=== PATIENT | male | born 1960 | race Caucasian/White ===

== ENCOUNTER → 2017-01-03 | Outpatient (CLI) | payer OTHER | LOC: ULTRA 12:48 | DX: N50.819 Testicular pain, unspecified (principal) ==

== ENCOUNTER → 2019-01-07 | Outpatient (CLI) | payer OTHER ==
[~2019-01-07] MED LIST: ADULT ASPIRIN R81 MG PO; ALL DAY ALLERGY10 M3 PO; CO Q-10100 MG PO; HOLY BASIL PO; LIPITOR 20 MG T20 M1 PO; SERTRALINE HCL100 MG PO
== END ==
LOC: CAT 01-06 13:51
DX: R91.1 Solitary pulmonary nodule (principal); R59.0 Localized enlarged lymph nodes

== ENCOUNTER → 2019-01-28 | Outpatient (CLI) | payer OTHER | LOC: PET 09:17 | DX: R91.1 Solitary pulmonary nodule (principal); R59.0 Localized enlarged lymph nodes; R91.8 Other nonspecific abnormal finding of lung field ==

== ENCOUNTER 2019-02-10 06:00 | Day surgery (SDC) | payer OTHER ==
[2019-02-05 08:52] LABS: URINE BILIRUBIN NEGATIVE (Negative); URINE BLOOD NEGATIVE (Negative); URINE CLARITY CLEAR; URINE COLOR YELLOW; URINE GLUCOSE-RANDOM* NEGATIVE (Negative); URINE KETONES NEGATIVE (Negative); URINE LEUKOCYTES-REFLEX NEGATIVE (Negative); URINE NITRITE-REFLEX NEGATIVE (Negative); URINE PROTEIN (DIPSTICK) NEGATIVE (Negative); URINE SPECIFIC GRAVITY 1.025 (1.005-1.035); URINE UROBILINOGEN 0.2 E.U./dl (0.2-1.0)
[2019-02-05 09:03] LABS: APTT 25.3 Seconds (24.5-32.8)
[~2019-02-10] VITALS: Ht 182.9 cm; Wt 91.6 kg
[2019-02-10 07:50] VITALS: BP 126/88
[2019-02-10 12:12] VITALS: BP 126/88
--- NOTE | 2019-02-11 15:09 | O ---
[facility] [place] [address] OPERATIVE REPORT Name: RAJANI GOODRICH Room #: 150-1 [facility]..#: [id number] Admission: 02/10/19 Attend Phys: Ciaran Luna MD Discharge: Date of : 62 Report #: [id number] THIS REPORT FOR: //name// CC: Ciaran Grady DATE OF SERVICE: 02/10/2019 PREOPERATIVE DIAGNOSIS: Mediastinal and hilar adenopathy. POSTOPERATIVE DIAGNOSIS: Mediastinal and hilar adenopathy. OPERATION: Bronchoscopy and mediastinoscopy. SURGEON: Ciaran Luna MD REPORTING PROCESS CONSULTANT: MATI Thrasher. ANESTHESIA: General. INDICATIONS: The patient is a 58-year-old with hilar and mediastinal adenopathy. The patient was sent to us for tissue diagnosis. FINDINGS AND TECHNIQUE: After general anesthesia was established, flexible diagnostic bronchoscopy was performed. No endobronchial lesions were noted and a respiratory mucosa was smooth and pink with no evidence of chronic inflammation. The patient was positioned, prepped and draped for mediastinoscopy. A low collar incision was made. Pretracheal space was entered and the mediastinoscope was passed. Enlarged lymph nodes at level 4 were identified, station 4R nodes were biopsied and sent for pathologic consideration. Frozen section showed noncaseating granulomas consistent with sarcoidosis and sufficient tissue was sent for culture as well as a full pathologic workup. Hemostasis was ascertained and the wound was closed in layers. The patient was taken to the recovery area in good condition having tolerated the procedure well. All counts were reported as correct. <ELECTRONICALLY SIGNED> By: Ciaran Luna MD 02/11/19 [id number] [id number] Ciaran Luna MD /nt
--- NOTE | 2019-02-12 16:06 | PATH ---
[facility] [place] [address] [place] [address] PATHOLOGY RPT PROCEDURE Name: RAJANI GOODRICH Room #: DEP [facility]..#: [id number] Admission: 02/10/19 Date of : 62 Discharge: 02/10/19 Report #: [id number] Path Case #: [id number] [facility] Accession Number: [id number] . 01 Material submitted: . lymph node - 4R MEDIASTINAL LYMPH NODE. Modifiers: 4R . 02 Frozen section diagnosis: . FROZEN SECTION DIAGNOSIS: (Dr. Yohana Otero) . FSA1: Four R mediastinal lymph nodes, lymph node biopsy: - Non-necrotizing granulomatous inflammation. - These findings are discussed with Dr. Ciaran Luna in OR 7 at [facility] and a written report is placed in the patient's chart. (IUV:pit; 02/10/2019) . FROZEN SECTION GROSS DESCRIPTION: The specimen is received fresh from the OR labeled with the patient's name and "Four R mediastinal lymph node" consists of multiple brown-brown spongy fragments of tissue measuring an aggregate of approximately 3.0 x 2.0 x 1.0 cm. A small portion is submitted for frozen section labeled as FSA1, this is subsequently submitted for permanent sections as A1. The unfrozen portion of tissue is submitted as follows: A small portion of the specimen from the fragments is used for touch preparation and labeled as TPA2 (stained with Diff-Quick stain on air dried slides). Another small portion measuring 0.5 x 0.5 x 0.5 cm is submitted in RPMI for flow cytometric analysis. The remainder of the specimen is wrapped in tissue paper and submitted entirely for permanent sections only as A2. (IUV:pit; 02/10/2019) . Frozen section performed at [facility], [address] [place] [address]. IZV/QTP . 02 Diagnosis: Lymph node (fragments) 4R mediastinal lymph node, biopsy: - Non-necrotizing granulomatous inflammation. - No significant lymphoid immunophenotypic abnormalities detected on flow cytometric analysis (please see comment). . AZJ 02/12/2019 1241 Local . 02 Comment: Examination shows fragments of lymph node effaced with non-necrotizing granulomatous inflammation. Acid fast bacillus and Gomori methenamine silver stains performed on block A2 are negative for mycobacterial as well [facility] [address] [place] [address] PATHOLOGY RPT PROCEDURE Name: RAJANI GOODRICH Room #: DEP [facility] [place]#: [id number] Admission: 02/10/19 Date of : 62 Discharge: 02/10/19 Report #: [id number] Path Case #: [id number] as fungal elements, respectively. . A portion of this specimen was sent for flow cytometric analysis to [facility]. The analysis showed no immunophenotypic evidence of B-cell or T-cell lymphoproliferative disorders. Nabor-Ashleigh cells, or cells suspicious for Hodgkin lymphoma are not identified morphologically. Please refer to an addendum to follow (to include the flow cytometric report). . Dr. Catherine Thibodeaux (board certified hematopathologist) has seen this case and concurs with my diagnosis. (IUV/db; 02/11/2019) . 02 Addendum: . Special studies report received from [facility], [address] [place] [address], [address], [place], [address], on case [id number], labeled with their number [id number], dated 02/11/2019. . Flow Cytometry: Hematologic Neoplasia Assessment . Clinical History Non necrotizing granulomatous inflammation . Indication for Study Evaluation for hematolymphoid neoplasia . Specimen Lymph Node, Mediastinal . Viability 87% (7AAD exclusion) . Interpretation Lymph Node, Mediastinal: - No significant lymphoid immunophenotypic abnormalities detected (see comment). . Comments Flow cytometric analysis detected no immunophenotypic evidence of B-cell or T-cell lymphoproliferative disorders. Non-hematolymphoid neoplasms, Hodgkin lymphoma, some large cell lymphomas, and some T-cell lymphomas cannot be excluded based solely on flow cytometric analysis data. Correlation with available clinical, laboratory, and morphologic/immunohistochemical analysis is recommended for an accurate diagnosis. . Populations Analyzed Lymphocytes: 81% B-cells: 20.4%, polytypic/polyclonal sIg light chain [facility] [address] [place] [address] PATHOLOGY RPT PROCEDURE Name: RAJANI GOODRICH Room #: [facility]#: [id number] Admission: 02/10/19 Date of : 62 Discharge: 02/10/19 Report #: [id number] Path Case #: [id number] pattern T-cells: no significant abnormalities of the markers tested CD4:CD8: 3.1 NK cells: 1.1% CD45 Negative 19% No significant reactivity with the markers tested Events/Debris: (may represent non-hematolymphoid cells, degenerated cells, debris, unlysed red blood cells, etc.) . . Morphologic Evaluation A slide was reviewed for senior quality manager purposes only. . Specimen Description Total Cell Yield: 29.22 X 10 and 6 . Reagent(s) Used CD2, CD3, CD4, CD5, CD7, CD8, CD10, CD11b, CD19, CD20, CD23, CD30, CD38, CD43, CD45, CD56, CD57, FMC-7, HLA-DR, kappa, lambda . at [email or web address] [employer]. Mario Lopez MD Pathologist . . Intended Use Flow cytometry is optimally used to immunophenotypically characterize abnormal populations when they are detected. Negative flow cytometry results do not exclude lymphoma or neoplasia. Possible false negative flow cytometry results may occur in, but are not limited to, the following: neoplastic cells in Hodgkin lymphoma are not typically adequately represented by routine clinical flow cytometry; neoplastic cells may be lost or inadequately represented due to degeneration, sample processing, sampling artifact, or patchy involvement; plasma cells are typically underrepresented by flow cytometry; immature cells/blasts may be underrepresented due to hemodilution; myeloproliferative disorders and low grade myelodysplasia may not have immunophenotypic abnormalities or increased blasts. Correlation with all available clinical, laboratory, and morphologic data is always necessary to assess for the possibility of false negative flow cytometry results and to establish a diagnosis. Each marker in this analysis was used to assess for potential antigenic abnormalities or to evaluate detected abnormalities. . Disclaimer(s) This test was performed at [email or web address]. at [address], [place], [address] - Telegraph Repeater Technician: Rogelio Ro MD. [address] [address] PATHOLOGY RPT PROCEDURE Name: RAJANI GOODRICH Room #: DEP [facility]..#: [id number] Admission: 02/10/19 Date of : 62 Discharge: 02/10/19 Report #: [id number] Path Case #: [id number] [facility] is a business unit of [email or web address] a wholly-owned subsidiary of [employer]. . Any image or images that accompany this report are sales representative womens health images only and should not be used to render a diagnosis. . This test was developed and its performance characteristics determined by [facility]. It has not been cleared or approved by the Food and Drug Administration (FDA). The FDA has determined that such clearance or approval is not necessary. . For inquiries, the physician may contact Lab: [phone] . A complete copy of the report is on file. . Professional services performed by [employer] [employer]. at [address], [place] [address]. Technical services performed by [employer]. at [address], [place] [address]. . (IUV:amj 02/11/2019) . . AZJ/02/12/2019 Addendum Electronically Signed by Yohana Otero MD, Pathologist . 02 Electronically signed: . Yohana Otero MD, Pathologist NPI- [id number] . 01 Gross description: . PLEASE SEE FROZEN SECTION FOR GROSS DESCRIPTION /QTP 02/10/2019 1244 Local . 02 Pathologist provided ICD-10: I88.0 . 02 CPT . 833705, 356187, 221118, 143568 Specimen Comment: A courtesy copy of this report has been sent to [phone] Specimen Comment: Report sent to Performed at: [address], [place], [place] [id number] MD Robert Montoya MD Phone: [phone] Performed at: 02 [facility] [address] [place] [address] PATHOLOGY RPT PROCEDURE Name: RAJANI GOODRICH Room #: DEP [facility].#: [id number] Admission: 02/10/19 Date of : 62 Discharge: 02/10/19 Report #: [id number] Path Case #: [id number] [address] [place] [id number] MD Yohana Otero MD Phone: [phone]
== END 2019-02-10 12:15 | disposition home or self-care (01) ==
LOC: OR 06:00 → TBA 06:01 → PRE 08:19 → EDSTATUS 10:12 → OR 10:15 → PRE 14:33
PROVIDERS: Surgery Vascular Surgery
DX: I88.8 Other nonspecific lymphadenitis (principal); E78.5 Hyperlipidemia, unspecified; Z98.890 Other specified postprocedural states; Z79.899 Other long term (current) drug therapy; Z87.891 Personal history of nicotine dependence; Z79.01 Long term (current) use of anticoagulants
CPT/HCPCS: 50010; 50101; 50386; 50403; 50607; 50649; 51301; 54118; 56524; 56526; 62110; 62900; 70005

== ENCOUNTER → 2020-09-07 | Outpatient (CLI) | payer OTHER | LOC: ULTRA 08:17 | PROVIDERS: ATTEND Neuromusculoskeletal Medicine & OMM | DX: I65.22 Occlusion and stenosis of left carotid artery (principal) ==